=== PATIENT | male | born 2005 | race Caucasian/White ===

== ENCOUNTER 2025-06-30 11:46 | Emergency (ER) | payer OTHER ==
[~2025-06-30] VITALS: Ht 177.8 cm; Wt 80.8 kg
[2025-06-30] MEDS ORDERED: ISOVUE-370 76% 100 ML VIAL As Ordered ONE (14:49)
[2025-06-30 14:50] LABS: BASO # 0.1 10^3/uL (0.0-0.2); BASO % 0.7 % (0.0-1.0); EOS # 0.0 10^3/uL (0.0-0.5); EOS % 0.3 % (0.0-3.0); LYMPH # 2.4 10^3/uL (1.5-5.0); LYMPH % 26.7 % (24.0-44.0); MONO # 0.7 10^3/uL (0.0-0.8); MONO % 8.2 % (2.0-8.0); NEUTROPHILS # 5.8 10^3/uL (1.5-8.5); NEUTROPHILS % 63.8 % (36.0-66.0); PLATELET COUNT, AUTOMATED 376 10^3/uL (150-450)
[2025-06-30 15:37] LABS: CALCIUM LEVEL 9.6 MG/DL (8.5-10.1); CARBON DIOXIDE LEVEL 33 MMOL/L (20-31); CHLORIDE LEVEL 103 MMOL/L (98-107); CREATININE FOR GFR 0.87 MG/DL (0.70-1.30); GLOMERULAR FILTRATION RATE > 90.0 (>60); POTASSIUM SERUM 4.3 MMOL/L (3.5-5.1); SODIUM LEVEL 142 MMOL/L (136-145)
[2025-06-30 15:56] LABS: MONO REFLEX EBV COMP NEGATIVE (NEGATIVE)
[2025-06-30 17:28] VITALS: BP 116/58; TEMP 98.2; O2SAT 100
== END 2025-06-30 17:33 | disposition home or self-care (01) ==
LOC: M ED 11:46
DX: J03.90 Acute tonsillitis, unspecified (principal); J35.2 Hypertrophy of adenoids; F17.200 Nicotine dependence, unspecified, uncomplicated; F10.10 Alcohol abuse, uncomplicated
CPT/HCPCS: 36415; 70491; 80047; 80048; 85025; 86308; 86664; 86665; 87880; 99283; Q9967

== ENCOUNTER 2025-09-22 09:11 | Day surgery (SDC) | payer OTHER ==
[~2025-09-22] VITALS: Ht 177.8 cm; Wt 85.3 kg
[2025-09-22] MEDS: LR 1,000 ML IV SCH (09:58)
[2025-09-22] MEDS ORDERED: ROCURONIUM BROMIDE 50MG/5ML VIAL As Ordered ONE (10:12)
[2025-09-22] MEDS ORDERED: LIDOCAINE 2% 100 MG/5 ML SDV (FOR ANES.) As Ordered ONE (10:12)
[2025-09-22] MEDS ORDERED: MIDAZOLAM INJ 2 MG/2 ML VIAL As Ordered ONE (10:14)
[2025-09-22] MEDS ORDERED: dexAMETHasone 4 MG/ML 1 ML VIAL As Ordered ONE (10:15)
[2025-09-22] MEDS ORDERED: ONDANSETRON 4MG/2ML VIAL As Ordered ONE (10:15)
[2025-09-22] MEDS: OXYMETAZOLINE 0.05% NASAL SPRAY As Ordered ONE (10:52)
[2025-09-22] MEDS ORDERED: ACETAMINOPHEN 1000MG/100ML IV BAG As Ordered ONE (11:25)
[2025-09-22] MEDS ORDERED: SUGAMMADEX SODIUM 200 MG/2 ML VIAL As Ordered ONE (11:34)
[2025-09-22] MEDS ORDERED: LR 1,000 ML IV SCH (12:00)
[2025-09-22] MEDS: HYDROMORPHONE HCL 0.5 MG/0.5 ML SYRINGE IV PRN (12:17)
[2025-09-22] MEDS: ONDANSETRON 4MG/2ML VIAL IV PRN (12:18)
[2025-09-22 14:45] VITALS: BP 128/64; TEMP 97.3; O2SAT 99
== END 2025-09-22 15:17 | disposition home or self-care (01) ==
LOC: M SDC 09:11
PROVIDERS: ATTEND Otolaryngology
DX: J35.03 Chronic tonsillitis and adenoiditis (principal); R13.19 Other dysphagia
CPT/HCPCS: 42821; 88302; J0131; J0665; J1100; J1171; J2250; J2405; J3010